=== PATIENT | male | born 1965 | race Caucasian/White ===

== ENCOUNTER 2018-08-31 00:01 | Observation (INO) | payer SELFPAY ==
[~2018-08-31] VITALS: Ht 170.2 cm; Wt 67.0 kg
--- NOTE | 2018-08-31 00:13 | NUR ---
NIL WHEN CALLED FOR TRIAGE.
--- NOTE | 2018-08-31 00:35 | NUR ---
BIBA. PT C/O PALPITATION WHEN PT AWAKE AROUND 0 AM TONIGHT. PT HAD THE SAME EPISODE ON LAST TUESDAY AND RESOLVED. NO CARDIAC HX, HOME MEDS, AND ANY OTHER S/S AT THIS TIME. PT'S AOX4. RESPS EVEN AND UNLABORED. ALL MONITORS IN PLACE. CALL LIGHT WITHIN REACH. EDMD AT BEDSIDE TO ASSESS AT THIS TIME.
[2018-08-31 01:11] LABS: ALANINE AMINOTRANSFERASE 38 U/L (12-78); ALBUMIN 3.9 g/dL (3.4-5.0); ANION GAP 5 mmol/L (5-15); CALCIUM 8.3 mg/dL (8.5-10.1); CHLORIDE 97 mmol/L (98-107); CREATININE 0.78 mg/dL (0.7-1.3)
[2018-08-31 01:15] LABS: ALKALINE PHOSPHATASE 49 U/L (45-117); BASOPHILS # (AUTO) 0.02 x10^3/uL (0-0.1); BASOPHILS % (AUTO) 0 % (0-1); BILIRUBIN,TOTAL 1.2 mg/dL (0.2-1.0); EOSINOPHILS # (AUTO) 0.06 x10^3/uL (0-0.4); EOSINOPHILS % (AUTO) 1 % (1-7); LYMPHOCYTES # (AUTO) 1.48 x10^3/uL (1-3.4); LYMPHOCYTES % (AUTO) 20 % (22-44); MD NO; MEAN CORPUSCULAR HEMOGLOBIN 29.3 pg (27.5-34.5); MEAN CORPUSCULAR HGB CONC 34.1 g/dL (33.2-36.2); MEAN CORPUSCULAR VOLUME 85.9 fL (81-97); MEAN PLATELET VOLUME 8.6 fL (7.4-10.4); MONOCYTES # (AUTO) 0.53 x10^3/uL (0.2-0.8); MONOCYTES % (AUTO) 7 % (2-9); NEUTROPHILS % (AUTO) 72 % (42-75); PLATELET COUNT 167 x10^3/uL (130-400); RED BLOOD COUNT 4.82 x10^6/uL (4.38-5.82); RED CELL DISTRIBUTION WIDTH 12.7 % (9.4-14.8); TOTAL PROTEIN 6.9 g/dL (6.4-8.2); TROPONIN I < 0.015 ng/mL (0.000-0.045)
[2018-08-31 01:22] LABS: D-DIMER < 0.19 ug/mlFEU (0.00-0.52); INTERNATIONAL NORMALIZED RATIO 1.02 (0.93-1.1); PARTIAL THROMBOPLASTIN TIME 29 Seconds (25-31); PROTHROMBIN TIME 10.8 Seconds (9.6-11.5)
--- NOTE | 2018-08-31 01:28 | NUR ---
PT AMB TO BR WITH STEADY GAIT.
--- NOTE | 2018-08-31 03:24 | NUR ---
PT RESTING IN [facility]. PT'S AOX4. RESPS EVEN AND UNLABORED. ALL MONITORS IN PLACE. CALL LIGHT WITHIN REACH.
--- NOTE | 2018-08-31 03:34 | NUR ---
PT AMB TO BR WITH STEADY GAIT.
[2018-08-31] MEDS ORDERED: SODIUM CHLORIDE 0.9% 1,000 ML IV SCH (04:27)
[2018-08-31] MEDS ORDERED: NITROGLYCERIN 0.4 MG BOTTLE (25 TABS) SL PRN (04:30)
[2018-08-31] MEDS ORDERED: DOCUSATE 100 MG CAPSULE PO PRN (04:30)
[2018-08-31] MEDS ORDERED: hydrALAzine 20 MG/ML, 1ML IVPush PRN (04:30)
[2018-08-31] MEDS ORDERED: POLYETHYLENE GLYCOL 17 GM PACKET PO PRN (04:30)
[2018-08-31] MEDS ORDERED: BISACODYL 10 MG SUPP PR PRN (04:30)
[2018-08-31] MEDS ORDERED: morphine SULFATE 10 MG/ML, 1ML IVPush PRN (04:30)
[2018-08-31] MEDS ORDERED: ONDANSETRON 2MG/ML, 2ML IVPush PRN (04:30)
[2018-08-31] MEDS ORDERED: ONDANSETRON ODT 4 MG PO PRN (04:30)
[2018-08-31] MEDS ORDERED: OXYcodone IR 5MG TABLET PO PRN (04:30)
[2018-08-31] MEDS ORDERED: PROMETHAZINE 25 MG/ML, 1ML IM PRN (04:30)
[2018-08-31] MEDS ORDERED: ASPIRIN 325 MG TABLET EC ONE (05:03)
[2018-08-31] MEDS ORDERED: HEPARIN 5,000 UNITS/ML, 1ML ONE (05:04)
[2018-08-31] MEDS: HEPARIN 5,000 UNITS/ML, 1ML SQ SCH ×3 (05:07→20:13)
[2018-08-31] MEDS: ASPIRIN 325 MG TABLET EC PO SCH (05:07)
--- NOTE | 2018-08-31 05:14 | NUR ---
PT MEDICATED PER EMAR. PT TOLERATED WELL. PT'S AOX4. RESPS EVEN AND UNLABORED. ALL MONITORS IN PLACE. CALL LIGHT WITHIN REACH.
[2018-08-31 05:26] LABS: BASOPHILS # (AUTO) 0.02 x10^3/uL (0-0.1); BASOPHILS % (AUTO) 0 % (0-1); EOSINOPHILS # (AUTO) 0.06 x10^3/uL (0-0.4); EOSINOPHILS % (AUTO) 1 % (1-7); LYMPHOCYTES # (AUTO) 2.05 x10^3/uL (1-3.4); LYMPHOCYTES % (AUTO) 26 % (22-44); MD NO; MEAN CORPUSCULAR HGB CONC 33.8 g/dL (33.2-36.2); MEAN CORPUSCULAR VOLUME 85.9 fL (81-97); MEAN PLATELET VOLUME 8.5 fL (7.4-10.4); MONOCYTES # (AUTO) 0.41 x10^3/uL (0.2-0.8); MONOCYTES % (AUTO) 5 % (2-9); NEUTROPHILS # (AUTO) 5.43 x10^3/uL (1.8-6.8); NEUTROPHILS % (AUTO) 68 % (42-75); PLATELET COUNT 188 x10^3/uL (130-400); RED CELL DISTRIBUTION WIDTH 12.8 % (9.4-14.8)
[2018-08-31 05:36] LABS: ALBUMIN 4.2 g/dL (3.4-5.0); ANION GAP 7 mmol/L (5-15); CALCIUM 8.6 mg/dL (8.5-10.1); CHLORIDE 102 mmol/L (98-107)
[2018-08-31 05:40] LABS: ALANINE AMINOTRANSFERASE 36 U/L (12-78); ALKALINE PHOSPHATASE 51 U/L (45-117); BILIRUBIN,TOTAL 1.6 mg/dL (0.2-1.0); CHOL/HDL RATIO 3.4; CHOLESTEROL, TOTAL 202 mg/dL (140-239); CREATININE 0.66 mg/dL (0.7-1.3); HDL CHOL % 30 % (26-37); HDL CHOLESTEROL (DIRECT) 60 mg/dL (40-60); LDL CHOLESTEROL,CALCULATED 129 mg/dL (54-169); LDL/HDL RATIO 2.2 (0.5-3.0); TOTAL PROTEIN 7.2 g/dL (6.4-8.2); TRIGLYCERIDES 65 mg/dL (50-200); TROPONIN I < 0.015 ng/mL (0.000-0.045); VLDL CHOLESTEROL 13 mg/dL (0-25)
--- NOTE | 2018-08-31 06:56 | NUR ---
REPORT GIVEN TO JAMAR LONG.
--- NOTE | 2018-08-31 06:59 | NUR ---
SBAR HAND-OFF REPORT RECEIVED FROM ETHAN PATEL. ASSUMING CARE OF PATIENT.
--- NOTE | 2018-08-31 07:35 | NUR ---
VS UPDATED AND WNL. PT AMBULATED TO BR AND WAS STEADY ON FEET. PT HAS NO COMPLAINTS AT THIS TIME. URINE COLLECTED AND SENT TO LAB.
[2018-08-31] MEDS ORDERED: ACETAMINOPHEN 325 MG TABLET ONE (07:36)
[2018-08-31] MEDS: ACETAMINOPHEN 325 MG TABLET PO PRN ×2 (07:38→18:56)
--- NOTE | 2018-08-31 07:38 | NUR ---
TYLENOL GIVEN FOR HEADACHE.
[2018-08-31 07:55] LABS: MICROSCOPIC NOT IND
[2018-08-31 08:12] LABS: CULTURE INDICATED? NO
--- NOTE | 2018-08-31 09:48 | NUR ---
SBAR TELEPHONE HAND-OFF REPORT GIVEN TO ETHAN FINN ON TELE. PT READY TO GO TO HOSPITAL ROOM.
[2018-08-31 10:16] VITALS: BP 143/80
[2018-08-31 12:31] LABS: TROPONIN I < 0.015 ng/mL (0.000-0.045)
[2018-08-31 13:30] VITALS: BP 121/72
[2018-08-31 19:44] VITALS: BP 100/67
[2018-09-01 02:25] VITALS: BP 149/91
[2018-09-01] MEDS ORDERED: IBUPROFEN 800 MG TABLET PO PRN (03:00)
[2018-09-01] MEDS: HEPARIN 5,000 UNITS/ML, 1ML SQ SCH ×2 (03:40→11:50)
[2018-09-01] MEDS: ASPIRIN 325 MG TABLET EC PO SCH (06:05)
[2018-09-01 07:04] VITALS: BP 102/63
[2018-09-01] MEDS: ACETAMINOPHEN 325 MG TABLET PO PRN (11:49)
== END 2018-09-01 13:01 | disposition home or self-care (01) ==
LOC: ED 02:37 → EDIP 02:38 → INTOOBSV 02:38 → 5SO 10:37 → DCLOUNGE 09-01 12:54
PROVIDERS: ADMIT Internal Medicine; ATTEND Internal Medicine
DX: R07.89 Other chest pain (principal); E87.1 Hypo-osmolality and hyponatremia; F41.9 Anxiety disorder, unspecified; R55 Syncope and collapse
CPT/HCPCS: 36415; 71045; 78452; 80053; 80061; 81003; 82330; 83036; 83735; 84443; 84484; 85025; 85379; 85610; 85730; 93005; 93017; 96360; 96361; 96372; 99284; A9502; G0378; J1644; J7030

== ENCOUNTER 2018-09-03 20:15 | Emergency (ER) | payer OTHER ==
[~2018-09-03] VITALS: Ht 170.2 cm; Wt 79.1 kg
--- NOTE | 2018-09-03 20:34 | NUR ---
pt up to rr with steady gait
--- NOTE | 2018-09-03 20:50 | NUR ---
PT PRESENTED WITH C/O EPIGASTRIC/SUBSTERNAL CP X2 TODAY, INTERMITTENT, PT STATED "FEELS LIKE MY HEART RACING" AND "IT WAKES ME UP FROM MY SLEEP". X 2 EPISODES TODAY. 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 PT WAS RECENTLY ADMITTED FOR SAME. MONITORS APPLIED, SIDERAILS UP X2, CALL LIGHT WITHIN REACH. PA AT BEDSIDE FOR EVAL
[2018-09-03 22:08] VITALS: BP 135/86
== END 2018-09-03 22:10 | disposition home or self-care (01) ==
LOC: ED 21:39
DX: R07.89 Other chest pain (principal); R00.2 Palpitations
CPT/HCPCS: 36415; 84484; 93005; 99284

== ENCOUNTER 2018-09-09 13:03 | Emergency (ER) | payer SELFPAY ==
[2018-09-09 13:46] LABS: BASOPHILS # (AUTO) 0.01 x10^3/uL (0-0.1); BASOPHILS % (AUTO) 0 % (0-1); EOSINOPHILS # (AUTO) 0.02 x10^3/uL (0-0.4); EOSINOPHILS % (AUTO) 0 % (1-7); LYMPHOCYTES # (AUTO) 1.06 x10^3/uL (1-3.4); LYMPHOCYTES % (AUTO) 11 % (22-44); MD NO; MEAN CORPUSCULAR HEMOGLOBIN 29.6 pg (27.5-34.5); MEAN CORPUSCULAR HGB CONC 34.4 g/dL (33.2-36.2); MEAN CORPUSCULAR VOLUME 86.1 fL (81-97); MEAN PLATELET VOLUME 8.6 fL (7.4-10.4); MONOCYTES # (AUTO) 0.29 x10^3/uL (0.2-0.8); MONOCYTES % (AUTO) 3 % (2-9); NEUTROPHILS # (AUTO) 7.93 x10^3/uL (1.8-6.8); NEUTROPHILS % (AUTO) 85 % (42-75); PLATELET COUNT 193 x10^3/uL (130-400); RED BLOOD COUNT 4.92 x10^6/uL (4.38-5.82); RED CELL DISTRIBUTION WIDTH 12.5 % (9.4-14.8)
[2018-09-09 13:48] LABS: ALBUMIN 4.1 g/dL (3.4-5.0); ANION GAP 7 mmol/L (5-15); CALCIUM 8.4 mg/dL (8.5-10.1); CHLORIDE 94 mmol/L (98-107); CREATININE 0.74 mg/dL (0.7-1.3)
[2018-09-09 13:51] LABS: TROPONIN I < 0.015 ng/mL (0.000-0.045)
[2018-09-09] MEDS ORDERED: SODIUM CHLORIDE FLUSH 10ML SYR IVF ONE (14:30)
[2018-09-09] MEDS ORDERED: SODIUM CHLORIDE 0.9% 1,000ML IVBOLUS ONE (14:30)
--- NOTE | 2018-09-09 15:31 | NUR ---
CARE FOR RN BREAK PROVIDED. PT SITTING UP ON GURNEY. PT WITH C/O "BEING TIRED AND UABLE TO SLEEP" AT THIS TIME. SR PER MONITOR, AUTO BP AND PULSE OX IN PLACE. DR RANKIN AT BEDSIDE TO RE-EVAL PT. IV FLUIDS INFUSING ORDERED. NO NEEDS EXPRESSED AT THIS TIME.
[2018-09-09 15:32] VITALS: BP 114/67
--- NOTE | 2018-09-09 15:42 | NUR ---
REPORT TO JAMAR LONG
--- NOTE | 2018-09-09 16:45 | NUR ---
Patient/Caregiver given discharge instructions and they have confirmed that they understand the instructions. Patient ambulatory with steady gait.
== END 2018-09-09 16:46 | disposition home or self-care (01) ==
LOC: ED 15:39
DX: R00.2 Palpitations (principal); E87.1 Hypo-osmolality and hyponatremia
CPT/HCPCS: 36415; 71045; 80048; 82040; 84484; 85025; 93005; 99284; J7030

== ENCOUNTER 2018-09-11 14:44 | Emergency (ER) | payer SELFPAY ==
[~2018-09-11] VITALS: Ht 170.2 cm; Wt 79.0 kg
[2018-09-11 15:38] LABS: BASOPHILS # (AUTO) 0.01 x10^3/uL (0-0.1); BASOPHILS % (AUTO) 0 % (0-1); EOSINOPHILS # (AUTO) 0.04 x10^3/uL (0-0.4); EOSINOPHILS % (AUTO) 1 % (1-7); LYMPHOCYTES # (AUTO) 1.25 x10^3/uL (1-3.4); LYMPHOCYTES % (AUTO) 16 % (22-44); MD NO; MEAN CORPUSCULAR HEMOGLOBIN 28.7 pg (27.5-34.5); MEAN CORPUSCULAR HGB CONC 33.1 g/dL (33.2-36.2); MEAN CORPUSCULAR VOLUME 86.7 fL (81-97); MEAN PLATELET VOLUME 8.4 fL (7.4-10.4); MONOCYTES # (AUTO) 0.39 x10^3/uL (0.2-0.8); MONOCYTES % (AUTO) 5 % (2-9); NEUTROPHILS % (AUTO) 78 % (42-75); PLATELET COUNT 199 x10^3/uL (130-400); RED BLOOD COUNT 4.95 x10^6/uL (4.38-5.82); RED CELL DISTRIBUTION WIDTH 12.7 % (9.4-14.8)
[2018-09-11 15:40] LABS: ALBUMIN 4.3 g/dL (3.4-5.0); ANION GAP 7 mmol/L (5-15); CALCIUM 8.8 mg/dL (8.5-10.1); CHLORIDE 98 mmol/L (98-107)
[2018-09-11 15:45] LABS: CREATININE 0.74 mg/dL (0.7-1.3); TROPONIN I < 0.015 ng/mL (0.000-0.045)
--- NOTE | 2018-09-11 17:40 | NUR ---
ASSUMED CARE OF PT AT THIS TIME FROM [facility]. AMBULATORY WITH STEADY GAIT. FLOAT ETHAN SERRANO AT BEDSIDE TO ASSIST WITH PT CHECK-IN. PT PROVIDED WARM BLANKET FOR COMFORT. MONITORS APPLIED BY ZACH LONG. CALL LIGHT IN REACH. FALL PRECAUTIONS IN PLACE.
--- NOTE | 2018-09-11 17:43 | NUR ---
TASK RN: PT ARRIVES TO ED WITH C/O OF CHEST PALPITATIONS WITH SLEEP. PT DENIES CP OR ANY SOB. PT REPORTS THAT SYMPOTMS COME AND GO AT THIS TIME. PTS VSS AND NADN NOTED IN ROOM. PT IS A/O X4 AND PERIPHERAL PULSES EQUAL MATCH MONITORED RHYTHM. AWAITING FURTHER ORDERS. PT CONNECTED TO ALL MONITORS AND CALL LIGHT IN REACH.
--- NOTE | 2018-09-11 17:46 | NUR ---
REPORT FROM ZACH LONG AT THIS TIME, BEDSIDE REPORT AND CARE TO RADHA LONG.
--- NOTE | 2018-09-11 17:46 | NUR ---
REPORT TO HILIARY RN.
--- NOTE | 2018-09-11 18:27 | NUR ---
PA AT FOR RE-EVAL.
--- NOTE | 2018-09-11 18:50 | NUR ---
ERP AT BS FOR RE-EVAL.
[2018-09-11 19:16] VITALS: BP 120/80
--- NOTE | 2018-09-11 19:17 | NUR ---
D/C INSTRUCTIONS, MEDS, AND F/U APPTS RV'WD WITH PT, HE VERBALIZES UNDERSTANDING. RX GIVEN X1. PT AMBULATED OUT OF ED WITHOUT DIFFICULTY.
== END 2018-09-11 19:19 | disposition home or self-care (01) ==
LOC: ED 19:13
DX: R00.2 Palpitations (principal); E87.1 Hypo-osmolality and hyponatremia
CPT/HCPCS: 36415; 71045; 80048; 82040; 84484; 85025; 93005; 99284